=== PATIENT | female | born 1955 | race Hispanic/Latino ===

== ENCOUNTER 2023-03-28 06:07 | Emergency (ER) | payer BC ==
[~2023-03-28] VITALS: Ht 157.5 cm; Wt 68.9 kg
[2023-03-28] MEDS ORDERED: MECLIZINE HCL 25 MG TABLET PO ONE (06:30)
[2023-03-28 06:49] LABS: BASOPHILS # (AUTO) 0.04 K/uL (0.00-0.20); BASOPHILS % (AUTO) 0.6 % (0.0-5.0); EOSINOPHILS # (AUTO) 0.43 K/uL (0.00-0.70); EOSINOPHILS % (AUTO) 6.3 % (0.0-8.0); HEMATOCRIT 34.6 % (36-48); IMMATURE GRANULOCYTE ABSOLUTE 0.01 K/uL (0-1); LYMPHOCYTES # (AUTO) 1.8 K/uL (1.0-4.8); LYMPHOCYTES % (AUTO) 26.4 % (21.0-51.0); MEAN CORPUSCULAR HEMOGLOBIN 32.2 pg (27.0-33.0); MEAN CORPUSCULAR HGB CONC 33.5 g/dL (32.0-36.0); MEAN CORPUSCULAR VOLUME 96.1 fL (79-99); MONOCYTES # (AUTO) 0.5 K/uL (0.1-1.0); MONOCYTES % (AUTO) 6.7 % (3.0-13.0); NEUTROPHILS # (AUTO) 4.1 K/uL (1.8-7.7); NEUTROPHILS % (AUTO) 59.9 % (40.0-77.0); PLATELET COUNT (AUTO) 208 K/uL (130-400); RED CELL DISTRIBUTION WIDTH 13.9 % (11.0-15.5); WHITE BLOOD COUNT (AUTO) 6.9 K/uL (4.8-10.8)
[2023-03-28 07:00] LABS: ALBUMIN 3.5 g/dL (3.5-5.0); CREATININE 1.1 mg/dL (0.5-1.5)
[2023-03-28 07:05] LABS: BILIRUBIN,TOTAL 0.3 mg/dL (0.2-1.0); TOTAL PROTEIN, SERUM 7.6 g/dL (6.0-8.3)
[2023-03-28 07:19] LABS: POTASSIUM 2.8 mmol/L (3.5-5.1)
[2023-03-28 07:20] LABS: INFLUENZA TYPE A Negative For Type A (NEGATIVE); INFLUENZA TYPE B Negative For Type B (NEGATIVE)
[2023-03-28 07:29] LABS: SARS-CoV-2, RNA, NAAT NEGATIVE SARS CoV-2 (NEGATIVE)
[2023-03-28] MEDS ORDERED: POTASSIUM BICARB/CIT AC 25 MEQ TABLET.EFF PO ONE (07:30)
[2023-03-28] MEDS ORDERED: 0.9%NACL 1000ML 2,000 ML IV ONE (07:30)
[2023-03-28] MEDS ORDERED: LACTATED RINGERS 1000ML 1,000 ML IV ONE (08:00)
[2023-03-28] MEDS ORDERED: MECL-302 PO (08:50)
[2023-03-28 11:13] VITALS: BP 121/64; PULSE 76; RESP 17; O2SAT 99
== END 2023-03-28 11:16 | disposition home or self-care (01) ==
LOC: EDH 06:07
DX: E87.6 Hypokalemia (principal); R42 Dizziness and giddiness; Z20.822 Contact with and (suspected) exposure to COVID-19
CPT/HCPCS: 99284; 96360; 71045; 96361; 87635; 84484; 80053; 85025; 87804 ×2; 36415; 93005; C9803; J7030

== ENCOUNTER → 2024-09-15 | Outpatient (CLI) | payer BC, OTHER ==
[~2024-09-15] MED LIST: MECL-302 PO
--- NOTE | 2024-09-15 15:21 | HMCIMG ---
Exam Type: MR KNEE LEFT WO Clinical Information: M93.262 Osteochondritis dissecans, left knee Comparison: None Technique: MRI of the knee was done with triplane localizer, axial T2 as well as sagittal proton density T2, T1, and fat-saturated T2. In addition, coronal T1 and coronal fat-saturated spin-echo sequences are available for review. FINDINGS: Osteochondral lesion of the posterior lateral femoral condyle is seen without attachment but with partial collapse, measuring 13 x 21 mm. There is a joint effusion. No meniscal pathology is seen. No effusions are identified. The cruciate and collateral ligaments are intact. No periarticular soft tissue abnormalities are seen. No Bakers cyst identified. There are no other gross abnormalities. IMPRESSION: Osteochondral lesion of the posterior lateral femoral condyle is seen without attachment but with partial collapse, measuring 13 x 21 mm. There is a joint effusion.
== END | disposition home or self-care (01) ==
LOC: RAH 13:59
PROVIDERS: ATTEND Orthopaedic Surgery
DX: M93.262 Osteochondritis dissecans, left knee (principal); M25.462 Effusion, left knee; M25.862 Other specified joint disorders, left knee
CPT/HCPCS: 73721